=== PATIENT | female | born 1945 | race Caucasian/White ===

== ENCOUNTER 2016-04-26 20:45 | Emergency (ER) | payer MEDICARE ==
[2016-04-26 21:06] VITALS: BP 137/90
--- NOTE | 2016-04-26 21:23 | EDM.PDOC ---
ED HPI GI/ABDOMINAL - General Chief Complaint: Gastrointestinal Problem Stated Complaint: VOMITING BLOOD Time Seen by Provider: 04/26/16 21:23 Source: Reports: Patient, Family History Limitations: Reports: No limitations - History of Present Illness INITIAL COMMENTS - FREE TEXT/NARRATIVE: pt developed a sensation that she had alot of mucous in her throat. She was wretching to raise the mucous and she noted some very small streaks of blood in the mucous. She then began to vomit and that looked like cranberry juice. That was tested for blood and it was neg. Timing/Duration: Reports: Hour(s): Location: other (pt has no pain) Quality: Reports: fullness, other ( she had something in her throat and it gave her the sensation of choking. ) Associated Symptoms (-Female): Reports: denies other symptoms - Related Data Allergies/ADRs: Allergies Allergy/AdvReac Type Severity Reaction Status Date / Time No Known Allergies Allergy Verified 01/02/14 09:53 Home Meds: Home Meds Venlafaxine [Effexor] 37.5 mg PO DAILY 12/31/13 [History] diphenhydrAMINE [Benadryl] 25 mg PO BEDTIME PRN 12/31/13 [History] Past Medical History HEENT History: Reports: Hard of hearing Gastrointestinal History: Reports: [employer] History: Reports: , Other (see below) Other OB/BYN History: tubal ligation Musculoskeletal History: Reports: Osteoarthritis Oncologic (Cancer) History: Reports: Breast - Past Surgical History Female Surgical History: Reports: Other (see below) Other Female Surgeries/Procedures: right breast lumpectomy 1999 Oncologic Surgical History: Reports: Lumpectomy Other Oncologic Surgeries/Procedures: chemo and radiation for breast CA Social & Family History - Tobacco Use Smoking Status *Q: Never Smoker Second Hand Smoke Exposure: No - Caffeine Use Caffeine Use: Reports: Coffee - Alcohol Use Days Per Week of Alcohol Use: 7 Number of Drinks Per Day: 2 Total Drinks Per Week: 14 Date of Last Drink: 04/26/16 Time of Last Drink: 17:00 - Recreational Drug Use Recreational Drug Use: No ED ROS GENERAL - Review of Systems Review Of Systems: See Below Constitutional: Reports: no symptoms HEENT: Reports: No symptoms Respiratory: Reports: other (felt like she was choking. ) Cardiovascular: Reports: No symptoms Endocrine: Reports: no symptoms GI/Abdominal: Reports: Vomiting, Other ( Pt came in with a bucket of redish material. This tested neg for blood. She has been told in the past that she has reflux. ) : Reports: no symptoms Musculoskeletal: Reports: no symptoms Skin: Reports: no symptoms Neurological: Reports: no symptoms ED EXAM, GI/ABD - Physical Exam Exam: See Below Text/Narrative:: pt arrived with a bucket of redish liquid. This was neg for blood. She did have the sensation earlier that she had alot of mucous in her throat. Exam Limited By: No limitations General Appearance: alert, anxious Eyes: bilateral: normal appearance, EOMI Ears: normal TMs Nose: normal inspection Throat/Mouth: Other ( no swelling in the throat. The rt pertonsilar area looked slightly red. m) Head: atraumatic Neck: normal inspection Respiratory/Chest: no respiratory distress Cardiovascular: regular rate, rhythm GI/Abdominal: soft, non tender Rectal (Female) Exam: Deferred Back Exam: normal inspection Extremities: normal inspection Neurological: alert, oriented, normal cognition Course - Vital Signs Last Recorded V/S: Last Vital Signs Temp 36.3 C 04/26/16 20:55 Pulse 64 04/26/16 20:55 Resp 16 04/26/16 20:55 BP 137/90 04/26/16 20:55 Pulse Ox 96 04/26/16 20:55 - Re-Assessments/Exams Free Text/Narrative Re-Assessment/Exam: 04/26/16 21:30 will schedule a gastro and she can follow up with Dr Gandhi. Departure - Departure Time of Disposition: 21:22 Disposition: Home, Self-Care 01 Condition: fair Clinical Impression: Gastric reflux Referrals: Colton Gandhi MD [Primary Care Provider] - Forms: ED Department Discharge Care Plan Goals: rtc for a gastroscope, follow up appt with Dr Gandhi.
== END 2016-04-26 21:29 | disposition home or self-care (01) ==
LOC: JP.ED 20:45
DX: K21.9 Gastro-esophageal reflux disease without esophagitis (principal); Z79.899 Other long term (current) drug therapy
CPT/HCPCS: 82271; 99283; 99284

== ENCOUNTER 2016-05-07 09:19 | Day surgery (SDC) | payer MEDICARE ==
[2016-05-07] MEDS ORDERED: Lactated Ringers 1,000 ML IV SCH (09:45)
[2016-05-07] MEDS ORDERED: Propofol 200 MG/20 ML SDV ONE (10:18)
[2016-05-07] MEDS ORDERED: fentaNYL 100 MCG/2 ML SDV ONE (10:19)
[2016-05-07] MEDS ORDERED: Midazolam 1 MG/ML 2 ML SDV ONE (10:19)
[2016-05-07] MEDS ORDERED: Labetalol 20 MG/4 ML Syringe IVPUSH ONE (12:29)
[2016-05-07 13:21] VITALS: BP 167/88
--- NOTE | 2016-05-07 14:36 | OR ---
DATE OF PROCEDURE: 05/07/2016 PREPROCEDURE DIAGNOSES: Gastroesophageal reflux disease, occasional dysphagia. POSTOPERATIVE DIAGNOSES: Gastroesophageal reflux disease, occasional dysphagia , hiatal hernia, mild gastritis. PROCEDURE: Esophagogastroduodenoscopy with biopsy of gastroesophageal junction and stomach for CLOtest and H pylori. ANESTHESIA: IV anesthesia with monitored anesthesia care. INDICATION: This 70-year-old white female is referred for upper endoscopy. She has a history of "heartburn." Also, she has occasional dysphagia, where food seems to stick. This is not all the time. I counseled her for upper endoscopy with possible biopsy including risks and alternatives, and she gave her informed consent to proceed. DESCRIPTION OF PROCEDURE: The patient was placed in the left lateral decubitus position. IV anesthesia was administered by the Anesthesia Service. Time-out was held. The flexible video Olympus upper endoscope was passed through her mouth, down her esophagus, and into her stomach. The scope was easily passed through the pylorus, into the duodenum , reaching its third portion. The scope was then slowly withdrawn, examining the mucosa throughout. The duodenal mucosa appeared unremarkable. The scope was brought back up through the pylorus. The antrum had some mild erythematous streaking emanating from it, consist with mild gastritis. We did obtain gastric biopsies for CLOtest and for pathology to look for Helicobacter pylori. The scope was retroflexed. The most proximal stomach appeared unremarkable except for a hiatal hernia. The scope was straightened and brought up to the hiatal hernia, which measured about 3 cm in length. The GE junction had some chronic scarring on it. It was not really stenotic. We did obtain biopsies of the GE junction. The scope was then brought proximal through the remainder of the esophagus, which appeared unremarkable, and it was removed. She tolerated the procedure well. Jayson Jimenez MD /[id number] [email or web address]
== END 2016-05-07 13:05 | disposition home or self-care (01) ==
LOC: JP.SDS 09:19
PROVIDERS: ATTEND Surgery
DX: K21.0 Gastro-esophageal reflux disease with esophagitis (principal); K44.9 Diaphragmatic hernia without obstruction or gangrene; R13.10 Dysphagia, unspecified; N95.1 Menopausal and female climacteric states; H91.93 Unspecified hearing loss, bilateral; F33.9 Major depressive disorder, recurrent, unspecified; Z85.3 Personal history of malignant neoplasm of breast; Z79.899 Other long term (current) drug therapy
CPT/HCPCS: 43239; 87081; J2250; J2704; J3010; J7120; 88305